=== PATIENT | male | born 1970 | race Two or more races ===

== ENCOUNTER → 2019-04-26 | Outpatient (CLI) | payer OTHER ==
[2015-05-01 11:37] VITALS: BP 135/93
[2019-04-26 10:11] LABS: BASO % 1 % (0-3); EOS # 0.2 x10^3/uL (0.0-0.7); EOS % 3 % (0-3); HEMOGLOBIN 14.5 g/dL (13.0-17.5); LYMPH # 1.7 x10^3/uL (1.0-4.8); LYMPH % 25 % (24-48); MEAN CORPUSCULAR HEMOGLOBIN 29 pg (25-35); MEAN CORPUSCULAR HGB CONC 34 g/dL (31-37); MEAN CORPUSCULAR VOLUME 87 fL (79-100); MONO # 0.3 x10^3/uL (0.0-1.1); MONO % 5 % (0-9); NEUT # 4.6 x10^3/uL (1.8-7.7); NEUT % 67 % (31-73); PLATELET COUNT 210 x10^3/uL (140-400); RED BLOOD COUNT 4.94 x10^6/uL (4.30-5.70); RED CELL DISTRIBUTION WIDTH 14.7 % (11.5-14.5); WHITE BLOOD COUNT 6.9 x10^3/uL (4.0-11.0)
[2019-04-26 10:28] LABS: CALCIUM 9.3 mg/dL (8.5-10.1); GFR 79.8; POTASSIUM 4.2 mmol/L (3.5-5.1); TOTAL BILIRUBIN 1.1 mg/dL (0.2-1.0)
[2019-04-26 10:32] LABS: CHOLESTEROL/HDL RATIO 3.4
[2019-04-27 01:07] LABS: HEMOGLOBIN A1C 7.3 % (4.8-5.6)
== END | disposition home or self-care (01) ==
LOC: LAB 09:46
PROVIDERS: ATTEND Internal Medicine
DX: E11.51 Type 2 diabetes mellitus with diabetic peripheral angiopathy without gangrene (principal); E78.2 Mixed hyperlipidemia
CPT/HCPCS: 36415; 80053; 80061; 82043; 82550; 83036; 84443; 85025

== ENCOUNTER 2020-01-01 20:29 | Emergency (ER) | payer OTHER ==
[~2020-01-01] VITALS: Ht 167.6 cm; Wt 72.7 kg
[2020-01-01] MEDS ORDERED: DEXAMETHASONE SOD PHOS 4 MG/ML VIAL IVP ONE (22:45)
[2020-01-01] MEDS ORDERED: KETOROLAC 15 MG/ML VIAL. IVP ONE (22:45)
[2020-01-01 22:54] LABS: BASO % 1 % (0-3); EOS # 0.2 x10^3/uL (0.0-0.7); EOS % 3 % (0-3); HEMATOCRIT 40.6 % (39.0-53.0); HEMOGLOBIN 13.5 g/dL (13.0-17.5); LYMPH # 2.4 x10^3/uL (1.0-4.8); LYMPH % 32 % (24-48); MEAN CORPUSCULAR HEMOGLOBIN 28 pg (25-35); MEAN CORPUSCULAR HGB CONC 33 g/dL (31-37); MEAN CORPUSCULAR VOLUME 85 fL (79-100); MONO # 0.5 x10^3/uL (0.0-1.1); MONO % 6 % (0-9); NEUT # 4.4 x10^3/uL (1.8-7.7); NEUT % 59 % (31-73); PLATELET COUNT 207 x10^3/uL (140-400); RED BLOOD COUNT 4.79 x10^6/uL (4.30-5.70); RED CELL DISTRIBUTION WIDTH 15.7 % (11.5-14.5); WHITE BLOOD COUNT 7.5 x10^3/uL (4.0-11.0)
[2020-01-01 23:04] LABS: CALCIUM 8.7 mg/dL (8.5-10.1); CREATININE 0.8 mg/dL (0.7-1.3); GFR 102.7; POTASSIUM 4.4 mmol/L (3.5-5.1)
[2020-01-01 23:09] LABS: ALBUMIN 3.5 g/dL (3.4-5.0); ALBUMIN/GLOBULIN RATIO 0.9 (1.0-1.7); MAGNESIUM 2.1 mg/dL (1.8-2.4); TOTAL BILIRUBIN 0.9 mg/dL (0.2-1.0); TOTAL PROTEIN 7.4 g/dL (6.4-8.2)
--- NOTE | 2020-01-01 23:10 | RAD ---
SHOULDER 2+V RIGHT History: Reason: right shoulder pain. nki / Spl. Instructions: / History: Technique: 3 views right shoulder. Comparison: None. Findings: Normal alignment. No fracture. Soft tissues unremarkable. Impression: 1. No acute osseous abnormality. Electronically signed by: Nikolay Gagnon DO (01/01/2020 11:07 PM) [facility]
--- NOTE | 2020-01-01 23:11 | RAD ---
PORTABLE CHEST 1V History: Reason: dyspnea, cough / Spl. Instructions: / History: Comparison: December 16, 2009 Findings: No consolidation or pleural effusion. Normal heart size. No pneumothorax. Calcified right midlung pulmonary nodule, likely prior granulomatous disease. Impression: 1. No acute cardiopulmonary process. Electronically signed by: Nikolay Gagnon DO (01/01/2020 11:08 PM) [facility] [place]
[2020-01-02] MEDS ORDERED: ORPH100T PO (00:20)
--- NOTE | 2020-01-02 00:23 | PHYS DOC ---
Past Medical History Past Medical History: Diabetes-Type II, Hypertension Past Surgical History: No Surgical History Additional Past Surgical Histo: right hand, right leg Smoking Status: Never Smoker Alcohol Use: None Drug Use: None General Adult EDM: Chief Complaint: SHORTNESS OF BREATH HPI: HPI: Patient is a 49 year old [f__sex] who presents with [] Review of Systems: Review of Systems: Constitutional: Denies fever or chills. [] Eyes: Denies change in visual acuity. [] HENT: Denies nasal congestion or sore throat. [] Respiratory: Denies cough or shortness of breath. [] Cardiovascular: Denies chest pain or edema. [] GI: Denies abdominal pain, nausea, vomiting, bloody stools or diarrhea. [] : Denies dysuria. [] Musculoskeletal: Denies back pain or joint pain. [] Integument: Denies rash. [] Neurologic: Denies headache, focal weakness or sensory changes. [] Endocrine: Denies polyuria or polydipsia. [] Lymphatic: Denies swollen glands. [] Psychiatric: Denies depression or anxiety. [] Heart Score: Risk Factors: Risk Factors: DM, Current or recent (<one month) smoker, HTN, HLP, family history of CAD, obesity. Risk Scores: Score 0 - 3: 2.5% MACE over next 6 weeks - Discharge Home Score 4 - 6: 20.3% MACE over next 6 weeks - Admit for Clinical Observation Score 7 - 10: 72.7% MACE over next 6 weeks - Early Invasive Strategies Current Medications: Current Medications Medications (Trade) Dose Ordered Sig/[facility] Start Time Stop Time Status Last Admin Dose Admin Dexamethasone Sodium Phosphate (Decadron) 10 mg 1X ONCE 01/01/20 22:45 01/01/20 23:32 DC 01/01/20 23:31 10 MG Ketorolac Tromethamine (Toradol 15mg Vial) 15 mg 1X ONCE 01/01/20 22:45 01/01/20 23:32 DC 01/01/20 23:31 15 MG Allergies: Allergies: Allergies Coded Allergies Type Severity Reaction Last Updated Verified No Known Drug Allergies 01/01/20 No Physical Exam: PE: Constitutional: Well developed, well nourished, no acute distress, non-toxic appearance. [] HENT: Normocephalic, atraumatic, bilateral external ears normal, oropharynx moist, no oral exudates, nose normal. [] Eyes: PERRLA, EOMI, conjunctiva normal, no discharge. [] Neck: Normal range of motion, no tenderness, supple, no stridor. [] Cardiovascular:Heart rate regular rhythm, no murmur [] Lungs & Thorax: Bilateral breath sounds clear to auscultation [] Abdomen: Bowel sounds normal, soft, no tenderness, no masses, no pulsatile masses. [] Skin: Warm, dry, no erythema, no rash. [] Back: No tenderness, no CVA tenderness. [] Extremities: No tenderness, no cyanosis, no clubbing, ROM intact, no edema. [] Neurologic: Alert and oriented X 3, normal motor function, normal sensory function, no focal deficits noted. [] Psychologic: Affect normal, judgement normal, mood normal. [] Current Patient Data: Labs: Laboratory Tests Test 01/01/20 22:28 White Blood Count 7.5 x10^3/uL (4.0-11.0) Red Blood Count 4.79 x10^6/uL (4.30-5.70) Hemoglobin 13.5 g/dL (13.0-17.5) Hematocrit 40.6 % (39.0-53.0) Mean Corpuscular Volume 85 fL (79-100) Mean Corpuscular Hemoglobin 28 pg (25-35) Mean Corpuscular Hemoglobin Concent 33 g/dL (31-37) Red Cell Distribution Width 15.7 % (11.5-14.5) H Platelet Count 207 x10^3/uL (140-400) Neutrophils (%) (Auto) 59 % (31-73) Lymphocytes (%) (Auto) 32 % (24-48) Monocytes (%) (Auto) 6 % (0-9) Eosinophils (%) (Auto) 3 % (0-3) Basophils (%) (Auto) 1 % (0-3) Neutrophils # (Auto) 4.4 x10^3/uL (1.8-7.7) Lymphocytes # (Auto) 2.4 x10^3/uL (1.0-4.8) Monocytes # (Auto) 0.5 x10^3/uL (0.0-1.1) Eosinophils # (Auto) 0.2 x10^3/uL (0.0-0.7) Basophils # (Auto) 0.0 x10^3/uL (0.0-0.2) D-Dimer (Stefani) 0.39 ug/mlFEU (0.00-0.50) Sodium Level 139 mmol/L (136-145) Potassium Level 4.4 mmol/L (3.5-5.1) Chloride Level 104 mmol/L (98-107) Carbon Dioxide Level 25 mmol/L (21-32) Anion Gap 10 (6-14) Blood Urea Nitrogen 12 mg/dL (8-26) Creatinine 0.8 mg/dL (0.7-1.3) Estimated GFR (Cockcroft-Gault) 102.7 BUN/Creatinine Ratio 15 (6-20) Glucose Level 136 mg/dL (70-99) H Lactic Acid Level 0.9 mmol/L (0.4-2.0) Calcium Level 8.7 mg/dL (8.5-10.1) Magnesium Level 2.1 mg/dL (1.8-2.4) Total Bilirubin 0.9 mg/dL (0.2-1.0) Aspartate Amino Transferase (AST) 39 U/L (15-37) H Alanine Aminotransferase (ALT) 62 U/L (16-63) Alkaline Phosphatase 100 U/L (46-116) Creatine Kinase 137 U/L (39-308) Creatine Kinase MB (Mass) 0.8 ng/mL (0.0-3.6) Creatine Kinase MB Relative Index 0.6 % (0-4) Troponin I Quantitative < 0.017 ng/mL (0.000-0.055) PP-Xkz-N-Type Natriuretic Peptide 29 pg/mL (0-124) Total Protein 7.4 g/dL (6.4-8.2) Albumin 3.5 g/dL (3.4-5.0) Albumin/Globulin Ratio 0.9 (1.0-1.7) L Lipase 134 U/L (73-393) Laboratory Tests 01/01/20 22:28 Laboratory Tests 01/01/20 22:28 Vital Signs: Vital Signs Date Time Temp Pulse Resp B/P (MAP) Pulse Ox O2 Delivery O2 Flow Rate FiO2 01/01/20 22:30 98.8 100 18 127/67 (87) 98 Room Air 98.8 EKG: EKG: @2335 NSR at 69bpm, NO ST elevation, QRS 92ms, QT/QTc 344/370ms, incomplete RBBB, J point elevation I and aVL. Radiology/Procedures: Radiology/Procedures: PROCEDURE: SHOULDER 2+V RIGHT SHOULDER 2+V RIGHT History: Reason: right shoulder pain. nki / Spl. Instructions: / History: Technique: 3 views right shoulder. Comparison: None. Findings: Normal alignment. No fracture. Soft tissues unremarkable. Impression: 1. No acute osseous abnormality. Electronically signed by: Nikolay Gagnon DO (01/01/2020 11:07 PM) [facility]500[facility]ops[facility]QUAN PROCEDURE: PORTABLE CHEST 1V PORTABLE CHEST 1V History: Reason: dyspnea, cough / Spl. Instructions: / History: Comparison: December 16, 2009 Findings: No consolidation or pleural effusion. Normal heart size. No pneumothorax. Calcified right midlung pulmonary nodule, likely prior granulomatous disease. Impression: 1. No acute cardiopulmonary process. Electronically signed by: Nikolay Gagnon DO (01/01/2020 11:08 PM) [facility] Course & Med Decision Making: Course & Med Decision Making Pertinent Labs and Imaging studies reviewed. (See chart for details) [] Dragon Disclaimer: Dragon Disclaimer: This electronic medical record was generated, in whole or in part, using a voice recognition dictation system. Departure Departure Impression: Primary Impression: COVID-19 Additional Impression: Shoulder pain, right Qualified Codes: M25.511 - Pain in right shoulder Disposition: 01 HOME, SELF-CARE Condition: STABLE Referrals: CHRISTINA SUMMERS MD (PCP) LORA TURNER MD Patient Instructions: Shoulder Pain, [id number] Additional Instructions: You have been tested for or diagnosed with COVID-19. It is an infection caused by a new type of coronavirus. COVID-19 will cause cold-like or mild flu symptoms in most. It can cause more severe symptoms like problems breathing in some. There is no treatment for COVID-19. The body will clear the infection over time. Self-care will help to ease discomfort. Steps to Take: Self-Care Rest as needed. Healthy habits may help you feel better. Steps include: Choose healthy foods including fruits and vegetables. Drink water throughout the day. Get plenty of sleep each night. If you smoke, try to quit. It may ease breathing. Avoid alcohol. Keep Others Healthy The virus can spread to others. Droplets are released every time you sneeze or cough. The droplets can get into the mouth, nose, or eyes of people near you and lead to infection. To lower the chances of spreading COVID-19 to others: Stay at home until your doctor has said it is safe to leave. If you tested positive this will mean staying isolated until both of the following are true: At least 7 days have passed since the start of illness. You are free of fever for at least 72 hours without the use of medicine. During this time: - Avoid public areas, events, or transportation. Do not return to work or school until your doctor has said it is safe to do so. - Call ahead if you need to go to a medical center. Let them know you may have COVID-19. It will help them guide you where to go. They may also ask you to wear a facemask when you come to the office. - If you call for emergency medical services, let them know you may have COVID- 19. While at home: - Try to avoid close contact with others. Stay about 6 feet away. - If possible, spend most of your time in a separate room from others. - Use a face mask if you will be in close contact with others such as sharing a room or vehicle. - Have someone wipe down common surfaces in the home. Use household training and development specialist every day on areas like doorknobs, counters, or sinks. - Cough or sneeze into a tissue. Throw the tissue away right after use. If a tissue is not available, cough or sneeze into your elbow. - Wash your hands often. Wash them after sneezing or coughing. Use soap and water and wash for at least 20 seconds. Alcohol based hand tack cleaner can be used if soap and water is not available. - Do not prepare food for others. Avoid sharing personal items like forks, spoons, or toothbrushes. - Avoid close contact with pets while you are sick. There is no evidence of the virus passing to pets. This is a safety step until more is known about this virus. Isolation can be frustrating. Social interaction can help. Keep in touch with friends and family through phone and tech options. You can still interact with others in your home, just keep a safe distance of about 6 feet. Follow-up: Your doctors office will check in with you to see if there are any changes in your health. You may be asked to keep track of symptoms to share with them. They will also let you know when you are clear to be in public again. Problems to Look Out For: Contact your doctor if your recovery is not going as you expect. Get emergency care if you have problems such as: - Trouble breathing - Nonstop chest pain or pressure - Changes in awareness, confusion, or problems waking - Lips or face have bluish color - Worsening of symptoms If you think you have an emergency, call for emergency medical services right away. As taken from [facility] Orphenadrine Citrate (ORPHENADRINE CITRATE) 100 Mg Tablet.er 100 MG PO BID PRN for MUSCLE SPASMS, #14 TAB Prov: CLIFF CUETO DO 01/02/20 Justicifation of Admission Dx: Justifications for Admission: Justification of Admission Dx: N/A CLIFF CUETO DO Jan 02, 2020 00:23
[2020-01-02 00:30] VITALS: BP 142/91
--- NOTE | 2020-01-02 04:11 | EKG ---
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
== END 2020-01-02 00:45 | disposition home or self-care (01) ==
LOC: ER 20:29
DX: U07.1 COVID-19 (principal); M25.511 Pain in right shoulder; E11.9 Type 2 diabetes mellitus without complications; I10 Essential (primary) hypertension; Z98.890 Other specified postprocedural states
CPT/HCPCS: 36415; 71045; 73030; 80053; 82553; 83605; 83690; 83735; 83880; 84484; 85025; 85379; 93005; 96374; 96375; 99285; J1100; J1885

== ENCOUNTER → 2020-02-05 | Outpatient (CLI) | payer OTHER ==
[~2020-02-05] MED LIST: ORPH100T PO
[2020-02-05 10:50] LABS: BASO % 0 % (0-3); EOS # 0.2 x10^3/uL (0.0-0.7); EOS % 3 % (0-3); HEMATOCRIT 43.9 % (39.0-53.0); HEMOGLOBIN 14.3 g/dL (13.0-17.5); LYMPH # 1.9 x10^3/uL (1.0-4.8); LYMPH % 22 % (24-48); MEAN CORPUSCULAR HEMOGLOBIN 27 pg (25-35); MEAN CORPUSCULAR HGB CONC 33 g/dL (31-37); MEAN CORPUSCULAR VOLUME 84 fL (79-100); MONO # 0.5 x10^3/uL (0.0-1.1); MONO % 6 % (0-9); NEUT # 5.8 x10^3/uL (1.8-7.7); NEUT % 69 % (31-73); PLATELET COUNT 177 x10^3/uL (140-400); RED BLOOD COUNT 5.25 x10^6/uL (4.30-5.70); WHITE BLOOD COUNT 8.5 x10^3/uL (4.0-11.0)
[2020-02-05 11:21] LABS: ALBUMIN 3.8 g/dL (3.4-5.0); ALBUMIN/GLOBULIN RATIO 0.9 (1.0-1.7); CALCIUM 9.4 mg/dL (8.5-10.1); CHOLESTEROL/HDL RATIO 2.8; GFR 79.4; POTASSIUM 4.5 mmol/L (3.5-5.1); TOTAL BILIRUBIN 1.2 mg/dL (0.2-1.0); TOTAL PROTEIN 8.1 g/dL (6.4-8.2)
[2020-02-05 22:08] LABS: CREAT RD UR 54.4 mg/dL (Not Estab.); MICRO CREAT RATIO <6 mg/g creat (0-29); MICROALB RD UR <3.0 ug/mL (Not Estab.)
== END ==
LOC: LAB 10:25
PROVIDERS: ATTEND Internal Medicine
DX: E11.51 Type 2 diabetes mellitus with diabetic peripheral angiopathy without gangrene (principal)
CPT/HCPCS: 80053; 80061; 82043; 82550; 82570; 83036; 85025

== ENCOUNTER 2020-04-24 21:52 | Emergency (ER) | payer OTHER ==
[~2020-04-24] VITALS: Ht 172.7 cm; Wt 66.0 kg
[2020-04-24 21:58] VITALS: BP 137/94
[2020-04-24] MEDS ORDERED: HYDR25TA PO (23:03)
[2020-04-24] MEDS ORDERED: PRED50TA PO (23:03)
--- NOTE | 2020-04-24 23:03 | ED.ADGEN ---
Past Medical History Past Medical History: Diabetes-Type II, Hypertension Past Surgical History: No Surgical History Additional Past Surgical Histo: right hand, right leg Smoking Status: Current Every Day Smoker Additional Information: 1-2 CIGS/DAY Alcohol Use: None Drug Use: None General Adult EDM: Chief Complaint: SKIN PROBLEM HPI: HPI: Patient is a 49 year old 49-year-old male coming in for diffuse pruritic rash. States it started earlier in the day and is here because he is unable to sleep. 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 Has been taking loratadine with some improvement. Patient denies any new medications or known exposures to egg plant. She does also have similar symptoms when the weather changes. Denies any recent illness, fever, difficulty breathing, wheezing, nausea, vomiting, diarrhea, or sensation of throat closing. Review of Systems: Review of Systems: All other systems within normal limits except for as noted in the HPI Current Medications: Current Medications Medications (Trade) Dose Ordered Sig/Rosanne Start Time Stop Time Status Last Admin Dose Admin Diphenhydramine HCl (Benadryl) 50 mg 1X ONCE 04/24/20 23:00 04/24/20 23:01 UNV Methylprednisolone Sodium Succinate (SOLU-Medrol 125MG VIAL) 125 mg 1X ONCE 04/24/20 23:00 04/24/20 23:01 UNV Allergies: Allergies: Allergies Coded Allergies Type Severity Reaction Last Updated Verified No Known Drug Allergies 01/01/20 No Physical Exam: PE: Constitutional: Well developed, well nourished, no acute distress, non-toxic appearance. [] HENT: Normocephalic, atraumatic, bilateral external ears normal, nose normal. [] Eyes: PERRLA, conjunctiva normal, no discharge. [] Neck: No rigidity, supple, no stridor. [] Cardiovascular: Regular rate and rhythm, brisk cap refill [] Lungs & Thorax: Non labored symmetric respirations, no tachypnea or respiratory distress [] Abdomen: Soft, nondistended. Skin: Warm, dry, no erythema, diffuse macular rash. [] Back: No tenderness, no CVA tenderness. [] Extremities: No deformities, range of motion grossly intact, no lower extremity edema [] Neurologic: Alert and oriented X 3, no focal deficits noted. [] Psychologic: Affect normal, judgement normal, mood normal. [] Current Patient Data: Vital Signs: Vital Signs Date Time Temp Pulse Resp B/P (MAP) Pulse Ox O2 Delivery O2 Flow Rate FiO2 04/24/20 21:58 97.6 95 18 137/94 (108) 96 Room Air 97.6 EKG: EKG: [] Heart Score: Risk Factors: Risk Factors: DM, Current or recent (<one month) smoker, HTN, HLP, family history of CAD, obesity. Risk Scores: Score 0 - 3: 2.5% MACE over next 6 weeks - Discharge Home Score 4 - 6: 20.3% MACE over next 6 weeks - Admit for Clinical Observation Score 7 - 10: 72.7% MACE over next 6 weeks - Early Invasive Strategies Radiology/Procedures: Radiology/Procedures: [] Course & Med Decision Making: Course & Med Decision Making Rash consistent with hives, treated with steroids and Benadryl [] Dragon Disclaimer: Dragon Disclaimer: This electronic medical record was generated, in whole or in part, using a voice recognition dictation system. Departure Departure Impression: Primary Impression: Full body hives Disposition: 01 DC HOME SELF CARE/HOMELESS Condition: STABLE Referrals: CHRISTINA SUMMERS MD (PCP) Patient Instructions: Hives Scripts Hydroxyzine Hcl (HYDROXYZINE HCL) 25 Mg Tablet 1 TAB PO TID PRN for itching for 15 Days, #30 TAB Prov: RONALD NAYLOR MD 04/24/20 Prednisone (PREDNISONE) 50 Mg Tablet 1 TAB PO DAILY for steroid for 5 Days, #5 TAB Prov: RONALD NAYLOR MD 04/24/20 RONALD NAYLOR MD Apr 24, 2020 23:03
[2020-04-24] MEDS ORDERED: methylPREDNISolone SOD SUCC PF 125 MG/2 ML VIAL. IM ONE (23:30)
[2020-04-24] MEDS ORDERED: diphenhydrAMINE 50 MG/ML VIAL IM ONE (23:30)
== END 2020-04-24 23:15 | disposition home or self-care (01) ==
LOC: ER 21:52
DX: L50.8 Other urticaria (principal); E11.9 Type 2 diabetes mellitus without complications; I10 Essential (primary) hypertension; F17.210 Nicotine dependence, cigarettes, uncomplicated
CPT/HCPCS: 96372; 99284; J1200; J2930

== ENCOUNTER → 2020-07-09 | Outpatient (CLI) | payer OTHER ==
[~2020-07-09] MED LIST changes: +HYDR25TA PO; +PRED50TA PO
--- NOTE | 2020-07-09 15:45 | RAD ---
XR RT WRIST 3VIEWS, XR HAND_RIGHT 3 VIEWS History: Reason: PAIN, HX OF OLD FX, PT HAS LARGE BUMP ON WRIST,FELL 6 MONTH AGO / Spl. Instructions: / History: Comparison: None available. Technique: 3 views of the right wrist and 3 views the right hand. Findings: Osseous mineralization is normal. No acute fracture or dislocation. Relative diminutive appearance of the scaphoid may represent sequela of old injury versus developmental variant. Subchondral cyst in t he triquetrum. No aggressive osseous erosive process. No radiopaque foreign body or soft tissue mass. Impression: 1. No acute osseous abnormality of the right wrist and hand. 2. No radiopaque mass or foreign body corresponding to described soft tissue bump. Electronically signed by: Moe Ang MD (07/09/2020 3:42 PM) [facility]
== END ==
LOC: RAD 10:20
PROVIDERS: ATTEND Internal Medicine
DX: M79.641 Pain in right hand (principal); M25.531 Pain in right wrist
CPT/HCPCS: 73110; 73130

== ENCOUNTER → 2020-09-25 | Outpatient (CLI) | payer OTHER ==
[2020-09-25 10:41] LABS: BASO % 1 % (0-3); EOS # 0.3 x10^3/uL (0.0-0.7); EOS % 4 % (0-3); HEMATOCRIT 41.5 % (39.0-53.0); HEMOGLOBIN 13.6 g/dL (13.0-17.5); LYMPH # 2.1 x10^3/uL (1.0-4.8); LYMPH % 31 % (24-48); MEAN CORPUSCULAR HEMOGLOBIN 28 pg (25-35); MEAN CORPUSCULAR HGB CONC 33 g/dL (31-37); MEAN CORPUSCULAR VOLUME 84 fL (79-100); MONO # 0.5 x10^3/uL (0.0-1.1); MONO % 7 % (0-9); NEUT # 3.9 x10^3/uL (1.8-7.7); NEUT % 58 % (31-73); PLATELET COUNT 168 x10^3/uL (140-400); RED BLOOD COUNT 4.95 x10^6/uL (4.30-5.70); RED CELL DISTRIBUTION WIDTH 15.2 % (11.5-14.5); WHITE BLOOD COUNT 6.8 x10^3/uL (4.0-11.0)
[2020-09-25 10:50] LABS: ALBUMIN/GLOBULIN RATIO 1.1 (1.0-1.7); CALCIUM 9.1 mg/dL (8.5-10.1); GFR 79.1; POTASSIUM 4.7 mmol/L (3.5-5.1); TOTAL PROTEIN 7.5 g/dL (6.4-8.2)
[2020-09-25 10:51] LABS: CHOLESTEROL/HDL RATIO 2.9
[2020-09-25 23:12] LABS: MICRO CREAT RATIO <8 mg/g creat (0-29); MICROALB RD UR <3.0 ug/mL (Not Estab.)
[2020-09-26 00:12] LABS: HEMOGLOBIN A1C 8.7 % (4.8-5.6)
== END ==
LOC: LAB 09:40
PROVIDERS: ATTEND Internal Medicine
DX: E11.42 Type 2 diabetes mellitus with diabetic polyneuropathy (principal); E78.2 Mixed hyperlipidemia; G62.9 Polyneuropathy, unspecified
CPT/HCPCS: 80053; 80061; 82043; 82550; 82570; 82607; 83036; 84443; 85025

== ENCOUNTER → 2020-12-11 | Outpatient (CLI) | payer OTHER ==
--- NOTE | 2020-12-11 16:47 | RAD ---
Exam Date: 12/11/2020 10:44 AM MRI LEFT UPPER EXTREMITY JOINT WITHOUT CONTRAST Indication: Reason: ADHESIVE CAPSULITIS OF LEFT SHOULDER / Spl. Instructions: / History: . TECHNIQUE: Routine multiplanar MR imaging of the shoulder was performed without contrast. FINDINGS: Increased signal in the supraspinatus tendon is consistent with tendinopathy. No full-thickness rotator cuff tendon tear is identified. The supraspinatus, infraspinatus, teres mi nor and subscapularis tendons are otherwise intact. Rotator cuff musculature demonstrates normal sig nal and bulk. Mild to moderate degenerative changes are seen at the AC joint. There is an intact type I/type II ac romion. No significant fluid is seen in the subacromial/subdeltoid bursa. Long head of the biceps tendon is intact. Degenerative signal is seen in the superior labrum, though lack of intra-articular contrast limits evaluation. There are no definite MR secondary findings to suggest adhesive capsulitis. The inferior glenohumera l ligament is without abnormal thickening. The coracohumeral ligament appears normal, with normal campos rrounding fat and without abnormal soft tissue thickening within the rotator interval. Mild degenerative changes are seen at the glenohumeral joint. Bone marrow demonstrates benign signal on all sequences without acute fracture. IMPRESSION: Supraspinatus tendinopathy without full-thickness rotator cuff tendon tear. There are no definite MR findings to suggest adhesive capsulitis. Electronically signed by: Tim Langford MD (12/11/2020 4:44 PM) [facility]
== END ==
LOC: MRI 10:44
PROVIDERS: ATTEND Internal Medicine Rheumatology
DX: M19.012 Primary osteoarthritis, left shoulder (principal); M75.02 Adhesive capsulitis of left shoulder
CPT/HCPCS: 73221

== ENCOUNTER → 2021-03-10 | Outpatient (CLI) | payer OTHER ==
[2021-03-10 10:52] LABS: BASO % 1 % (0-3); EOS # 0.2 x10^3/uL (0.0-0.7); EOS % 3 % (0-3); HEMATOCRIT 44.7 % (39.0-53.0); LYMPH # 1.7 x10^3/uL (1.0-4.8); LYMPH % 24 % (24-48); MEAN CORPUSCULAR HEMOGLOBIN 27 pg (25-35); MEAN CORPUSCULAR HGB CONC 31 g/dL (31-37); MEAN CORPUSCULAR VOLUME 86 fL (79-100); MONO # 0.4 x10^3/uL (0.0-1.1); MONO % 5 % (0-9); NEUT # 4.9 x10^3/uL (1.8-7.7); NEUT % 68 % (31-73); PLATELET COUNT 184 x10^3/uL (140-400); RED BLOOD COUNT 5.21 x10^6/uL (4.30-5.70); RED CELL DISTRIBUTION WIDTH 16.7 % (11.5-14.5); WHITE BLOOD COUNT 7.2 x10^3/uL (4.0-11.0)
[2021-03-10 11:08] LABS: ALBUMIN 4.2 g/dL (3.4-5.0); ALBUMIN/GLOBULIN RATIO 1.2 (1.0-1.7); CALCIUM 9.2 mg/dL (8.5-10.1); GFR 79.1; POTASSIUM 4.7 mmol/L (3.5-5.1); TOTAL PROTEIN 7.8 g/dL (6.4-8.2)
[2021-03-10 11:09] LABS: CHOLESTEROL/HDL RATIO 3.2
[2021-03-11 07:17] LABS: HEMOGLOBIN A1C 9.2 % (4.8-5.6)
[2021-03-11 10:13] LABS: CREAT RD UR 53.4 mg/dL (Not Estab.); MICRO CREAT RATIO <6 mg/g creat (0-29); MICROALB RD UR <3.0 ug/mL (Not Estab.)
== END ==
LOC: LAB 09:53
PROVIDERS: ATTEND Internal Medicine
DX: E11.42 Type 2 diabetes mellitus with diabetic polyneuropathy (principal)
CPT/HCPCS: 80053; 80061; 82043; 82550; 82570; 83036; 85025

== ENCOUNTER 2021-05-15 09:32 | Emergency (ER) | payer OTHER ==
[~2021-05-15] VITALS: Ht 167.6 cm; Wt 74.3 kg
[2021-05-15] MEDS ORDERED: KETOROLAC 60 MG/2 ML VIAL. IM ONE (10:30)
--- NOTE | 2021-05-15 10:36 | PHYS DOC ---
Past Medical History Past Medical History: Diabetes-Type II, Hypertension (ALEXANDRIA JOSHUA APRN) Past Surgical History: Other Additional Past Surgical Histo: right hand, right leg (ALEXANDRIA JOSHUA APRN) Smoking Status: Current Every Day Smoker Alcohol Use: None Drug Use: None (ALEXANDRIA JOSHUA APRN) General Adult EDM: Chief Complaint: SHOUDLER HPI: HPI: Patient is a 50-year-old male that presents today with right arm shoulder pain. Patient states that he has had pain for quite some time he is seeing a orthopedic doctor for management of this right shoulder pain but he was told the other day that he needed insurance approval for a steroid injection into his shoulder and he is waiting for insurance approval he was seen on the for this. They are continue to await insurance approval but they are here because he is having trouble sleeping at night due to the pain. Patient does have a primary care physician Dr. Summers and he has not followed up with Dr. Summers regarding this pain. (ALEXANDRIA JOSHUA SENIOR INSIGHT MANAGER INTERNATIONAL) Review of Systems: Review of Systems: Constitutional: Denies fever or chills. [] Eyes: Denies change in visual acuity. [] HENT: Denies nasal congestion or sore throat. [] Respiratory: Denies cough or shortness of breath. [] Cardiovascular: Denies chest pain or edema. [] GI: Denies abdominal pain, nausea, vomiting, bloody stools or diarrhea. [] : Denies dysuria. [] Musculoskeletal: Right shoulder pain Integument: Denies rash. [] Neurologic: Denies headache, focal weakness or sensory changes. [] Endocrine: Denies polyuria or polydipsia. [] Lymphatic: Denies swollen glands. [] Psychiatric: Denies depression or anxiety. [] (ALEXANDRIA JOSHUA SENIOR INSIGHT MANAGER INTERNATIONAL) Heart Score: C/O Chest Pain: N/A Risk Factors: Risk Factors: DM, Current or recent (<one month) smoker, HTN, HLP, family history of CAD, obesity. Risk Scores: Score 0 - 3: 2.5% MACE over next 6 weeks - Discharge Home Score 4 - 6: 20.3% MACE over next 6 weeks - Admit for Clinical Observation Score 7 - 10: 72.7% MACE over next 6 weeks - Early Invasive Strategies (ALEXANDRIA JOSHUA APRN) Current Medications: Current Medications Medications (Trade) Dose Ordered Sig/Rosanne Start Time Stop Time Status Last Admin Dose Admin Ketorolac Tromethamine (Toradol Im) 60 mg 1X ONCE 05/15/21 10:30 05/15/21 10:31 DC (ALEXANDRIA JOSHUA APRN) Allergies: Allergies: Allergies Coded Allergies Type Severity Reaction Last Updated Verified No Known Drug Allergies 01/01/20 No (ALEXANDRIA JOSHUA APRN) Physical Exam: PE: Constitutional: Well developed, well nourished, no acute distress, non-toxic appearance. [] HENT: Normocephalic, atraumatic, bilateral external ears normal, oropharynx moist, no oral exudates, nose normal. [] Eyes: PERRLA, EOMI, conjunctiva normal, no discharge. [] Neck: Normal range of motion, no tenderness, supple, no stridor. [] Cardiovascular:Heart rate regular rhythm, no murmur [] Lungs & Thorax: Bilateral breath sounds clear to auscultation [] Abdomen: Bowel sounds normal, soft, no tenderness, no masses, no pulsatile masses. [] Skin: Warm, dry, no erythema, no rash. [] Back: No tenderness, no CVA tenderness. [] Extremities: Tenderness to right shoulder noted patient has limited range of motion due to pain. No swelling and no redness noted in the right shoulder. Neurologic: Alert and oriented X 3, normal motor function, normal sensory function, no focal deficits noted. [] Psychologic: Affect normal, judgement normal, mood normal. [] (ALEXANDRIA JOSHUA APRN) Current Patient Data: Vital Signs: Vital Signs Date Time Temp Pulse Resp B/P (MAP) Pulse Ox O2 Delivery O2 Flow Rate FiO2 05/15/21 09:59 98.4 88 18 110/61 (77) 99 98.4 (ALEXANDRIA JOSHUA APRN) EKG: EKG: [] (ALEXANDRIA JOSHUA SENIOR INSIGHT MANAGER INTERNATIONAL) Radiology/Procedures: Radiology/Procedures: [] (ALEXANDRIA JOSHUA APRN) Course & Med Decision Making: Course & Med Decision Making Pertinent Labs and Imaging studies reviewed. (See chart for details) Patient was informed that it will take 5-7 business days for the insurance to get back to the doctor's office for further approval of the injection it does take some time for insurances to approve procedures. Patient was under the understanding that it would be a next day type thing. Patient was informed to call his primary care physician for further pain management of his right and left shoulder pain. Patient will be given a Toradol injection while here in the department is to follow-up with his primary care Dr. Summers. (ALEXANDRIA JOSHUA APRN) Dragon Disclaimer: Dragon Disclaimer: This electronic medical record was generated, in whole or in part, using a voice recognition dictation system. (ALEXANDRIA JOSHUA APRN) Departure Departure Impression: Primary Impression: Shoulder pain, left Qualified Codes: M25.512 - Pain in left shoulder Disposition: HOME / SELF CARE / HOMELESS Condition: STABLE Referrals: CHRISTINA SUMMERS MD (PCP) Patient Instructions: Shoulder Pain Additional Instructions: Follow-up with Dr. Summers for further management of your shoulder pain [id number] Tylenol and/or ibuprofen as needed for pain. Attending Signature Attending Signature I have reviewed the PA/ENTERTAINMENT MUSICIAN's note and plan of care. I was available for consultation as needed during the patient's visit in the emergency department. I agree with the clinical impression, plan, and disposition. (CLIFF CUETO DO) ALEXANDRIA JOSHUA APRN May 15, 2021 10:36 CLIFF CUETO DO May 16, 2021 07:23
[2021-05-15 10:52] VITALS: BP 110/79
== END 2021-05-15 10:55 | disposition home or self-care (01) ==
LOC: ER 09:32
DX: M25.512 Pain in left shoulder (principal); E11.9 Type 2 diabetes mellitus without complications; I10 Essential (primary) hypertension; F17.200 Nicotine dependence, unspecified, uncomplicated
CPT/HCPCS: 96372; 99283; J1885

== ENCOUNTER → 2021-06-09 | Outpatient (CLI) | payer OTHER ==
[2021-05-15 10:52] VITALS: BP 110/79
[2021-06-10 01:08] LABS: HEMOGLOBIN A1C 7.3 % (4.8-5.6)
== END ==
LOC: LAB 07:49
PROVIDERS: ATTEND Internal Medicine
DX: E11.65 Type 2 diabetes mellitus with hyperglycemia (principal)
CPT/HCPCS: 36415; 83036